=== PATIENT | male | born 1960 ===

== ENCOUNTER 2017-07-27 04:50 | Observation (INO) | payer OTHER ==
[2017-07-27] MEDS ORDERED: Sodium Chloride 0.9% 1,000 ML IV ONE ×2 (05:07→07:35)
[2017-07-27] MEDS ORDERED: Sodium Chloride 0.9% 1,000 ML ONE (05:19)
[2017-07-27 05:23] LABS: BASO # 0.2 K/uL (0.0-0.2); BASO % 1.1 % (0.0-2.0); EOS % 0.3 % (0.0-4.0); HEMOGLOBIN 15.4 g/dL (12.0-18.0); LYMPH # 2.2 K/uL (1.0-4.3); LYMPH % 14.3 % (20.0-40.0); MEAN CORPUSCULAR HEMOGLOBIN 29.9 pg (27.0-31.0); MEAN PLATELET VOLUME 9.3 fL (7.2-11.7); MONO # 0.4 K/uL (0.0-0.8); MONO % 2.8 % (0.0-10.0); NEUT # 12.5 K/uL (1.8-7.0); NEUT % 81.5 % (50.0-75.0); RBC 5.15 Mil/uL (4.40-5.90); WHITE BLOOD COUNT 15.3 K/uL (4.8-10.8)
[2017-07-27 05:34] LABS: ALB/GLOB RATIO 1.1 (1.0-2.1); ALBUMIN 4.3 g/dL (3.5-5.0); ALT/SGPT 28 U/L (21-72); AST/SGOT 24 U/L (17-59); BLOOD UREA NITROGEN 17 mg/dL (9-20); CALCIUM 9.6 mg/dl (8.6-10.4); GFR AFRICAN-AMERICAN > 60; GFR NON-AFRICAN AMERICAN > 60; LIPASE 86 U/L (23-300)
--- NOTE | 2017-07-27 06:10 | C.PDOC ---
History Of Present Illness 56 y/o male with h/o of DM BIBEMS with c/o of several episodes of vomiting, abdomen and flank pain since midnight. Pt denies fever, food association, dysuria, hematuria, urine frequency or similar previous symptoms. 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 denies: Fever, Back Pain, Urinary Symptoms Last Bowel Movement: Today Recent travel outside of the [place]: No Past Medical History Vital Signs: Last Vital Signs Temp 97.8 F 07/27/17 05:05 Pulse 60 07/27/17 05:05 Resp 20 07/27/17 05:05 BP 194/74 H 07/27/17 05:05 Pulse Ox 100 07/27/17 06:41 - Medical History PMH: No Chronic Diseases Family History: States: Unknown Family Hx - Social History Hx Alcohol Use: Yes Hx Substance Use: No - Immunization History Hx Tetanus Toxoid Vaccination: No Hx Influenza Vaccination: No Hx Pneumococcal Vaccination: No Review Of Systems Constitutional: Negative for: Fever Cardiovascular: Negative for: Chest Pain, Palpitations, Light Headedness Respiratory: Negative for: Shortness of Breath Gastrointestinal: Positive for: Nausea, Vomiting, Abdominal Pain, Other (flank pain) Genitourinary: Negative for: Dysuria, Hematuria Physical Exam - Physical Exam Appears: Well Eye(s): bilateral: Normal Inspection, PERRL Cardiovascular: Rhythm Regular Respiratory: Normal Breath Sounds Gastrointestinal/Abdominal: Normal Exam, Bowel Sounds, Soft, No Tenderness, No Distention, No Guarding, No Rebound Back: CVA Tenderness (B?L) Male Genital: Normal Inspection, No Testicular Tenderness Neurological/Psych: Oriented x3 ED Course And Treatment - Laboratory Results Result Diagrams: 07/27/17 05:19 07/27/17 05:19 O2 Sat by Pulse Oximetry: 100 Pulse Ox Interpretation: Normal - CT Scan/US CT Abdomen/Pelvis w/o Contrast Other Rad Studies (CT/US): Read By Radiologist, Radiology Report Reviewed CT/US Interpretation: FINDINGS: Limitations: Lack of intravenous contrast. Lung bases: Minimal atelectasis. ABDOMEN: Liver: Fatty infiltration. Gallbladder and bile ducts: No calcified stones. No ductal dilation. Pancreas: Unremarkable. No ductal dilation. Spleen: No splenomegaly. Adrenals: No mass. Kidneys and ureters: Mild atrophy of right kidney. No renal calculi. No hydronephrosis. Stomach and bowel: Fluid/loose stool within left colon. No definite mural thickening. No obstruction. Appendix: Normal caliber. No inflammation. PELVIS: Bladder: Unremarkable. No stones. Reproductive: Unremarkable as visualized. ABDOMEN and PELVIS: Intraperitoneal space: No significant fluid collection. No free air. Bones/joints: Early degenerative changes of spine. No acute fracture. Soft tissues: Small umbilical hernia containing fat. Small LEFT inguinal hernia containing fat. Vasculature: Minimal atherosclerotic disease. No aneurysm. Lymph nodes: No pathologically enlarged lymph nodes. IMPRESSION: 1. No definite CT evidence of urolithiasis. 2. Fluid/loose stool within bowel may suggest diarrhea illness. 3. Incidental /non-acute findings are described above. Progress Note: Labs incl UA and non contrast abd / pelvis CT ordered. Pt received Toradol and zofran IV and IVF. 0600- recurring vomiting- compazine IV ordered. 0640- Pt now c./o epigastric pain- ABD/ pelvis Ct shows no stones. RUq US and pepcid IV ordered Disposition - Disposition Disposition: HOME/ ROUTINE Disposition Time: 07:00 Condition: STABLE Forms: [employer] (Maltese) - Clinical Impression Clinical Impression: Abdominal pain Physician Patient Turnover Patient Signed Over To: Rekha Avendano Handoff Comments: Pending RUQ US and reeval
--- NOTE | 2017-07-27 06:28 | CT ---
EXAM: CT Abdomen and Pelvis Without Intravenous Contrast CLINICAL HISTORY: 56 years old, male; Pain; Other: Chest & b/l flank; Patient HX: Diabetic; Additional info: B/l flank pain TECHNIQUE: Axial computed tomography images of the abdomen and pelvis without intravenous contrast. All CT scans at this facility use one or more dose reduction techniques, viz.: automated exposure control; ma/kV adjustment per patient size (including targeted exams where dose is matched to indication; i.e. head); or iterative reconstruction technique. Coronal and sagittal reformatted images were created and reviewed. COMPARISON: No relevant prior studies available. FINDINGS: Limitations: Lack of intravenous contrast. Lung bases: Minimal atelectasis. ABDOMEN: Liver: Fatty infiltration. Gallbladder and bile ducts: No calcified stones. No ductal dilation. Pancreas: Unremarkable. No ductal dilation. Spleen: No splenomegaly. Adrenals: No mass. Kidneys and ureters: Mild atrophy of right kidney. No renal calculi. No hydronephrosis. Stomach and bowel: Fluid/loose stool within left colon. No definite mural thickening. No obstruction. Appendix: Normal caliber. No inflammation. PELVIS: Bladder: Unremarkable. No stones. Reproductive: Unremarkable as visualized. ABDOMEN and PELVIS: Intraperitoneal space: No significant fluid collection. No free air. Bones/joints: Early degenerative changes of spine. No acute fracture. Soft tissues: Small umbilical hernia containing fat. Small LEFT inguinal hernia containing fat. Vasculature: Minimal atherosclerotic disease. No aneurysm. Lymph nodes: No pathologically enlarged lymph nodes. IMPRESSION: 1. No definite CT evidence of urolithiasis. 2. Fluid/loose stool within bowel may suggest diarrhea illness. 3. Incidental/non-acute findings are described above.
[2017-07-27] MEDS ORDERED: Morphine 4 MG/ML VIAL IV STA (06:29)
[2017-07-27 06:36] LABS: SQUAMOUS EPITHIAL 1 /hpf (0-5); URINE BILIRUBIN NEGATIVE (NEGATIVE); URINE BLOOD NEGATIVE (NEGATIVE); URINE CLARITY Clear (Clear); URINE COLOR Straw (YELLOW); URINE GLUCOSE (UA) 3+ mg/dL (Normal); URINE LEUKOCYTE ESTERASE NEG Leu/uL (Negative); URINE PROTEIN NEGATIVE (NEGATIVE); URINE UROBILINOGEN NORMAL mg/dL (0.2-1.0)
[2017-07-27] MEDS ORDERED: Oxycodone/Acetaminophen 5/325 mg Tab PO STA (07:28)
[2017-07-27] MEDS ORDERED: Oxycodone/Acetaminophen 5/325 mg Tab ONE (07:37)
--- NOTE | 2017-07-27 08:24 | RAD ---
HISTORY: left chest wall pain COMPARISON: No prior. TECHNIQUE: Chest PA and lateral FINDINGS: LUNGS: No active pulmonary disease. PLEURA: No significant pleural effusion identified. No pneumothorax apparent. CARDIOVASCULAR: Normal. OSSEOUS STRUCTURES: No significant abnormalities. VISUALIZED UPPER ABDOMEN: Normal. OTHER FINDINGS: None. IMPRESSION: No active disease.
[2017-07-27 08:37] LABS: BARBITURATES, UR NEGATIVE (NEGATIVE); BENZODIAZEPINES, UR NEGATIVE (NEGATIVE); OPIATES, UR NEGATIVE (NEGATIVE); PHENCYCLIDINE, UR NEGATIVE (NEGATIVE)
--- NOTE | 2017-07-27 09:18 | US ---
Right upper quadrant abdominal ultrasound History: Abdominal pain. Comparison: CT scan dated 07/27/2017 Technique: Real-time sonography was performed through the right upper quadrant of the abdomen. Findings: Liver: 14.1 centimeters in length. Increased echogenicity of the hepatic parenchymal cortex suggestive for fatty infiltration versus hepatic parenchymal disease. Clinical correlation. Gallbladder: No calculi or sludge. Normal wall thickness of 2.6 millimeters. Negative sonographic Waddell's sign. Common bile duct measures 4.3 millimeters, within normal limits. Limited visualization of the pancreas. Visualized aorta and IVC are preserved. Right kidney: 9.2 x 4.8 x 5.0 centimeters. No calculi or hydronephrosis. Impression: Increased echogenicity of the hepatic parenchymal cortex suggestive for fatty infiltration versus hepatic parenchymal disease. Clinical correlation. Limited visualization of the pancreas.
[2017-07-27 11:05] VITALS: RESP 20
[2017-07-27] MEDS: Sodium Chloride 0.9% 1,000 ML IV SCH ×2 (11:42→18:00)
[2017-07-27] MEDS: (Novolin R) Insulin Human Regular 100 units/ml vial SC SCH ×3 (12:01→22:00)
--- NOTE | 2017-07-27 14:40 | CP.PCM.HP ---
<Breanne Ornelas - Last Filed: 07/27/17 14:40> History of Present Illness - History of Present Illness History of Present Illness: HPI: Patient is a 56 year old male with a past medical history of DM who presents with abdominal pain and intractable vomiting that began around midnight last night. There were no precipitating factors as far as he knows, with no change in his diet. He describes the pain as sharp and stabbing and rates it at 10/10, localized to epigastrium. He has also had several episodes of diarrhea and dizziness without syncope. Patient says he can not tolerate anything by mouth. He states that he experienced an identical episode about 8 months ago for which he was hospitalized and at that time was diagnosed with DM. He takes Metformin 1000mg daily. He denies fever, chills, weakness, headache , CP, palpitations, hematemesis, constipation, hematochezia, urinary changes, back pain, recent travel, recent sickness, sick contacts, weight changes. PMH: DM Meds: Metformin 1000 mg daily Allergies: Denies Surg: Denies FMH: Denies Social: Smokes ~4 cigarettes daily with 35 year history; drinks alcohol <1 day/ week; admits to using cocaine "once in a while" Present on Admission - Present on Admission Any Indicators Present on Admission: No Review of Systems - Review of Systems All systems: reviewed and no additional remarkable complaints except (as per HPI ) Past Patient History - Past Social History Smoking Status: Light Smoker < 10 Cigarettes Daily - ENDOCRINE/METABOLIC Hx Diabetes Mellitus Type 2: Yes - PSYCHIATRIC Hx Substance Use: No - SURGICAL HISTORY Hx Surgeries: No - ANESTHESIA Hx Anesthesia: No Meds Allergies/Adverse Reactions: Allergies Allergy/AdvReac Type Severity Reaction Status Date / Time No Known Allergies Allergy Verified 07/27/17 05:04 Physical Exam - Constitutional Appears: Non-toxic, No Acute Distress - Head Exam Head Exam: ATRAUMATIC, NORMAL INSPECTION, NORMOCEPHALIC - Eye Exam Eye Exam: EOMI, Normal appearance, PERRL - ENT Exam ENT Exam: Mucous Membranes Dry - Neck Exam Neck exam: Positive for: Normal Inspection - Respiratory Exam Respiratory Exam: Clear to Auscultation Bilateral, NORMAL BREATHING PATTERN. absent: Rales, Rhonchi, Wheezes - Cardiovascular Exam Cardiovascular Exam: RRR, +S1, +S2. absent: Gallop, Rubs, Systolic Murmur - GI/Abdominal Exam GI & Abdominal Exam: Guarding (voluntary with palpation of the epigastrum), Normal Bowel Sounds, Soft, Tenderness (epigastric tenderness). absent: Distended - Extremities Exam Extremities exam: Positive for: normal inspection. Negative for: calf tenderness, pedal edema - Neurological Exam Neurological exam: Alert, Oriented x3 - Psychiatric Exam Psychiatric exam: Normal Affect, Normal Mood - Skin Skin Exam: Dry, Intact, Normal Color, Warm Results - Vital Signs Recent Vital Signs: Last Vital Signs Temp 97.8 F 07/27/17 11:30 Pulse 81 07/27/17 11:30 Resp 20 07/27/17 11:30 BP 177/89 H 07/27/17 11:30 Pulse Ox 96 07/27/17 12:33 - Labs Result Diagrams: 07/27/17 05:19 07/27/17 05:19 Labs: Laboratory Results - last 24 hr 07/27/17 07/27/17 07/27/17 05:19 05:19 06:31 WBC 15.3 H RBC 5.15 Hgb 15.4 Hct 45.3 MCV 88.0 MCH 29.9 MCHC 34.0 RDW 13.0 Plt Count 289 MPV 9.3 Neut % (Auto) 81.5 H Lymph % (Auto) 14.3 L [place] % (Auto) 2.8 Eos % (Auto) 0.3 Baso % (Auto) 1.1 Neut # (Auto) 12.5 H Lymph # (Auto) 2.2 [place] # (Auto) 0.4 Eos # (Auto) 0.0 Baso # (Auto) 0.2 Sodium 137 Potassium 4.7 Chloride 95 L Carbon Dioxide 28 Anion Gap 20 BUN 17 Creatinine 0.9 Est GFR ( Amer) > 60 Est GFR (Non-Af Amer) > 60 POC Glucose (mg/dL) Random Glucose 368 H Calcium 9.6 Total Bilirubin 0.6 AST 24 ALT 28 Alkaline Phosphatase 128 H Troponin I < 0.0120 Total Protein 8.4 H Albumin 4.3 Globulin 4.0 H Albumin/Globulin Ratio 1.1 Lipase 86 Urine Color Straw Urine Clarity Clear Urine pH 8.0 Ur Specific [place] 1.017 Urine Protein Negative Urine Glucose (UA) 3+ H Urine Ketones Trace Urine Blood Negative Urine Nitrate Negative Urine Bilirubin Negative Urine Urobilinogen Normal Ur Leukocyte Esterase Neg Urine RBC (Auto) < 1 Ur Squamous Epith Cells 1 Urine Opiates Screen Urine Methadone Screen Ur Barbiturates Screen Ur Phencyclidine Scrn Ur Amphetamines Screen U Benzodiazepines Scrn U Oth Cocaine Metabols U Cannabinoids Screen 07/27/17 07/27/17 07/27/17 07:40 09:54 11:44 WBC RBC Hgb Hct MCV MCH MCHC RDW Plt Count MPV Neut % (Auto) Lymph % (Auto) [place] % (Auto) Eos % (Auto) Baso % (Auto) Neut # (Auto) Lymph # (Auto) [place] # (Auto) Eos # (Auto) Baso # (Auto) Sodium Potassium Chloride Carbon Dioxide Anion Gap BUN Creatinine Est GFR ( Amer) Est GFR (Non-Af Amer) POC Glucose (mg/dL) 268 H 255 H Random Glucose Calcium Total Bilirubin AST ALT Alkaline Phosphatase Troponin I Total Protein Albumin Globulin Albumin/Globulin Ratio Lipase Urine Color Urine Clarity Urine pH Ur Specific [place] Urine Protein Urine Glucose (UA) Urine Ketones Urine Blood Urine Nitrate Urine Bilirubin Urine Urobilinogen Ur Leukocyte Esterase Urine RBC (Auto) Ur Squamous Epith Cells Urine Opiates Screen Negative Urine Methadone Screen Negative Ur Barbiturates Screen Negative Ur Phencyclidine Scrn Negative Ur Amphetamines Screen Negative U Benzodiazepines Scrn Negative U Oth Cocaine Metabols Positive H U Cannabinoids Screen Negative Assessment & Plan - Assessment and Plan (Free Text) Plan: Vomiting and Diarrhea * Likely gastroenteritis, unlikely gastroparesis considering rather short history of DM (8 months) * Leukocytosis (15.3) with neutrophilia * Afebrile * CT abdomen/pelvis: Fluid/loose stool in bowel * Abdominal US: fatty liver vs hepatic parenchymal disease * CXR: no active disease, no air under the diaphragm * NPO with ice chips * NS @150 cc/h * Zofran PRN * Protonix DM * hold metformin * ISS medium dose * Accuchecks ACHS * Hypoglycemia protocol * f/u HbA1c Prophylaxis * SCDs * Protonix <Christy Ontiveros - Last Filed: 07/27/17 18:49> Results - Vital Signs Recent Vital Signs: Last Vital Signs Temp 97.8 F 07/27/17 11:30 Pulse 81 07/27/17 11:30 Resp 20 07/27/17 11:30 BP 177/89 H 07/27/17 11:30 Pulse Ox 96 07/27/17 12:33 - Labs Result Diagrams: 07/27/17 05:19 07/27/17 05:19 Labs: Laboratory Results - last 24 hr 07/27/17 07/27/17 07/27/17 05:19 05:19 06:31 WBC 15.3 H RBC 5.15 Hgb 15.4 Hct 45.3 MCV 88.0 MCH 29.9 MCHC 34.0 RDW 13.0 Plt Count 289 MPV 9.3 Neut % (Auto) 81.5 H Lymph % (Auto) 14.3 L [place] % (Auto) 2.8 Eos % (Auto) 0.3 Baso % (Auto) 1.1 Neut # (Auto) 12.5 H Lymph # (Auto) 2.2 [place] # (Auto) 0.4 Eos # (Auto) 0.0 Baso # (Auto) 0.2 Sodium 137 Potassium 4.7 Chloride 95 L Carbon Dioxide 28 Anion Gap 20 BUN 17 Creatinine 0.9 Est GFR ( Amer) > 60 Est GFR (Non-Af Amer) > 60 POC Glucose (mg/dL) Random Glucose 368 H Calcium 9.6 Total Bilirubin 0.6 AST 24 ALT 28 Alkaline Phosphatase 128 H Troponin I < 0.0120 Total Protein 8.4 H Albumin 4.3 Globulin 4.0 H Albumin/Globulin Ratio 1.1 Lipase 86 Urine Color Straw Urine Clarity Clear Urine pH 8.0 Ur Specific [place] 1.017 Urine Protein Negative Urine Glucose (UA) 3+ H Urine Ketones Trace Urine Blood Negative Urine Nitrate Negative Urine Bilirubin Negative Urine Urobilinogen Normal Ur Leukocyte Esterase Neg Urine RBC (Auto) < 1 Ur Squamous Epith Cells 1 Urine Opiates Screen Urine Methadone Screen Ur Barbiturates Screen Ur Phencyclidine Scrn Ur Amphetamines Screen U Benzodiazepines Scrn U Oth Cocaine Metabols U Cannabinoids Screen 07/27/17 07/27/17 07/27/17 07:40 09:54 11:44 WBC RBC Hgb Hct MCV MCH MCHC RDW Plt Count MPV Neut % (Auto) Lymph % (Auto) Mclean % (Auto) Eos % (Auto) Baso % (Auto) Neut # (Auto) Lymph # (Auto) Mclean # (Auto) Eos # (Auto) Baso # (Auto) Sodium Potassium Chloride Carbon Dioxide Anion Gap BUN Creatinine Est GFR ( Amer) Est GFR (Non-Af Amer) POC Glucose (mg/dL) 268 H 255 H Random Glucose Calcium Total Bilirubin AST ALT Alkaline Phosphatase Troponin I Total Protein Albumin Globulin Albumin/Globulin Ratio Lipase Urine Color Urine Clarity Urine pH Ur Specific [place] Urine Protein Urine Glucose (UA) Urine Ketones Urine Blood Urine Nitrate Urine Bilirubin Urine Urobilinogen Ur Leukocyte Esterase Urine RBC (Auto) Ur Squamous Epith Cells Urine Opiates Screen Negative Urine Methadone Screen Negative Ur Barbiturates Screen Negative Ur Phencyclidine Scrn Negative Ur Amphetamines Screen Negative U Benzodiazepines Scrn Negative U Oth Cocaine Metabols Positive H U Cannabinoids Screen Negative 07/27/17 16:24 WBC RBC Hgb Hct MCV MCH MCHC RDW Plt Count MPV Neut % (Auto) Lymph % (Auto) Mclean % (Auto) Eos % (Auto) Baso % (Auto) Neut # (Auto) Lymph # (Auto) Mclean # (Auto) Eos # (Auto) Baso # (Auto) Sodium Potassium Chloride Carbon Dioxide Anion Gap BUN Creatinine Est GFR ( Amer) Est GFR (Non-Af Amer) POC Glucose (mg/dL) 217 H Random Glucose Calcium Total Bilirubin AST ALT Alkaline Phosphatase Troponin I Total Protein Albumin Globulin Albumin/Globulin Ratio Lipase Urine Color Urine Clarity Urine pH Ur Specific [place] Urine Protein Urine Glucose (UA) Urine Ketones Urine Blood Urine Nitrate Urine Bilirubin Urine Urobilinogen Ur Leukocyte Esterase Urine RBC (Auto) Ur Squamous Epith Cells Urine Opiates Screen Urine Methadone Screen Ur Barbiturates Screen Ur Phencyclidine Scrn Ur Amphetamines Screen U Benzodiazepines Scrn U Oth Cocaine Metabols U Cannabinoids Screen Attending/Attestation - Attestation I have personally seen and examined this patient.: Yes I have fully participated in the care of the patient.: Yes I have reviewed all pertinent clinical information: Yes Notes (Text): Seen and examined has intractable vomiting.no chest pain,no sob DM diagnosed 8months ago. Looks sick and dehydrated mild epigastric tenderness,no guarding,no rigidity assessment and the plan discussed with the resident. I agree with the resident' s documentation of of the assessment and the plan continue fluids and zofran 1.Intractable vomiting and diarrhea 2. likely Gastro enteritis 3. DM
[2017-07-27] MEDS ORDERED: Dextrose 50% SYRINGE Inj (50 ml) IV PRN (14:48)
[2017-07-27] MEDS ORDERED: Glucagon Recombinant 1 mg Inj IM PRN (14:48)
[2017-07-28] MEDS: Sodium Chloride 0.9% 1,000 ML IV SCH ×5 (02:16→13:40)
[2017-07-28 06:26] LABS: BASO # 0.1 K/uL (0.0-0.2); BASO % 0.3 % (0.0-2.0); EOS # 0.2 K/uL (0.0-0.7); EOS % 1.1 % (0.0-4.0); HEMOGLOBIN 14.1 g/dL (12.0-18.0); LYMPH # 4.4 K/uL (1.0-4.3); LYMPH % 26.4 % (20.0-40.0); MEAN CELL VOLUME 89.2 fL (80.0-94.0); MEAN CORPUSCULAR HEMOGLOBIN 30.2 pg (27.0-31.0); MEAN CORPUSCULAR HGB CONC 33.8 g/dL (33.0-37.0); MEAN PLATELET VOLUME 9.2 fL (7.2-11.7); MONO # 1.1 K/uL (0.0-0.8); MONO % 6.4 % (0.0-10.0); NEUT % 65.8 % (50.0-75.0); NRBC % 0.1 % (0.0-2.0); RBC 4.68 Mil/uL (4.40-5.90); RED CELL DISTRIBUTION WIDTH 12.8 % (11.5-14.5); WHITE BLOOD COUNT 16.7 K/uL (4.8-10.8)
[2017-07-28 06:33] LABS: BLOOD UREA NITROGEN 12 mg/dL (9-20); CALCIUM 7.5 mg/dl (8.6-10.4); GFR AFRICAN-AMERICAN > 60; GFR NON-AFRICAN AMERICAN > 60
[2017-07-28] MEDS ORDERED: Potassium Chloride 20 mEq ER Tab PO ONE (07:30)
[2017-07-28] MEDS: (Novolin R) Insulin Human Regular 100 units/ml vial SC SCH ×2 (08:05→12:10)
[2017-07-28 09:24] VITALS: BP 140/85; PULSE 85; TEMP 98.6; O2SAT 97
[2017-07-28] MEDS ORDERED: Pneumococcal 23-Valent Vaccine IM ONE (14:00)
--- NOTE | 2017-07-28 17:57 | CP.PCM.DIS ---
Provider - Provider Date of Admission: 07/27/17 09:45 Attending physician: Christy Ontiveros MD Time Spent in preparation of Discharge (in minutes): 35 Diagnosis - Discharge Diagnosis (1) Gastroenteritis Status: Acute Hospital Course - Lab Results Lab Results: Most Recent Lab Values WBC 16.7 K/uL (4.8-10.8) H 07/28/17 06:09 RBC 4.68 Mil/uL (4.40-5.90) 07/28/17 06:09 Hgb 14.1 g/dL (12.0-18.0) 07/28/17 06:09 Hct 41.8 % (35.0-51.0) 07/28/17 06:09 MCV 89.2 fL (80.0-94.0) 07/28/17 06:09 MCH 30.2 pg (27.0-31.0) 07/28/17 06:09 MCHC 33.8 g/dL (33.0-37.0) 07/28/17 06:09 RDW 12.8 % (11.5-14.5) 07/28/17 06:09 Plt Count 248 K/uL (130-400) 07/28/17 06:09 MPV 9.2 fL (7.2-11.7) 07/28/17 06:09 Neut % (Auto) 65.8 % (50.0-75.0) 07/28/17 06:09 Lymph % (Auto) 26.4 % (20.0-40.0) 07/28/17 06:09 [place] % (Auto) 6.4 % (0.0-10.0) 07/28/17 06:09 Eos % (Auto) 1.1 % (0.0-4.0) 07/28/17 06:09 Baso % (Auto) 0.3 % (0.0-2.0) 07/28/17 06:09 Neut # (Auto) 11.0 K/uL (1.8-7.0) H 07/28/17 06:09 Lymph # (Auto) 4.4 K/uL (1.0-4.3) H 07/28/17 06:09 [place] # (Auto) 1.1 K/uL (0.0-0.8) H 07/28/17 06:09 Eos # (Auto) 0.2 K/uL (0.0-0.7) 07/28/17 06:09 Baso # (Auto) 0.1 K/uL (0.0-0.2) 07/28/17 06:09 Sodium 138 mmol/L (132-148) 07/28/17 06:09 Potassium 3.4 mmol/L (3.6-5.2) L 07/28/17 06:09 Chloride 102 mmol/L (98-107) 07/28/17 06:09 Carbon Dioxide 27 mmol/L (22-30) 07/28/17 06:09 Anion Gap 13 (10-20) 07/28/17 06:09 BUN 12 mg/dL (9-20) 07/28/17 06:09 Creatinine 0.8 mg/dL (0.8-1.5) 07/28/17 06:09 Est GFR ( Amer) > 60 07/28/17 06:09 Est GFR (Non-Af Amer) > 60 07/28/17 06:09 POC Glucose (mg/dL) 188 mg/dL (65-110) H 07/28/17 11:30 Random Glucose 144 mg/dL (75-110) H 07/28/17 06:09 Hemoglobin A1c 11.0 % (4.2-6.5) H 07/28/17 06:09 Calcium 7.5 mg/dl (8.6-10.4) L 07/28/17 06:09 Total Bilirubin 0.6 mg/dL (0.2-1.3) 07/27/17 05:19 AST 24 U/L (17-59) 07/27/17 05:19 ALT 28 U/L (21-72) 07/27/17 05:19 Alkaline Phosphatase 128 U/L (38-126) H 07/27/17 05:19 Troponin I < 0.0120 ng/mL (0.00-0.120) 07/27/17 05:19 Total Protein 8.4 g/dL (6.3-8.3) H 07/27/17 05:19 Albumin 4.3 g/dL (3.5-5.0) 07/27/17 05:19 Globulin 4.0 gm/dL (2.2-3.9) H 07/27/17 05:19 Albumin/Globulin Ratio 1.1 (1.0-2.1) 07/27/17 05:19 Lipase 86 U/L (23-300) 07/27/17 05:19 Urine Color Straw (YELLOW) 07/27/17 06:31 Urine Clarity Clear (Clear) 07/27/17 06:31 Urine pH 8.0 (5.0-8.0) 07/27/17 06:31 Ur Specific [place]gie 1.017 (1.003-1.030) 07/27/17 06:31 Urine Protein Negative mg/dL (NEGATIVE) 07/27/17 06:31 Urine Glucose (UA) 3+ mg/dL (Normal) H 07/27/17 06:31 Urine Ketones Trace mg/dL (NEGATIVE) 07/27/17 06:31 Urine Blood Negative (NEGATIVE) 07/27/17 06:31 Urine Nitrate Negative (NEGATIVE) 07/27/17 06:31 Urine Bilirubin Negative (NEGATIVE) 07/27/17 06:31 Urine Urobilinogen Normal mg/dL (0.2-1.0) 07/27/17 06:31 Ur Leukocyte Esterase Neg Sever[place]/uL (Negative) 07/27/17 06:31 Urine RBC (Auto) < 1 /hpf (0-3) 07/27/17 06:31 Ur Squamous Epith Cells 1 /hpf (0-5) 07/27/17 06:31 Urine Opiates Screen Negative (NEGATIVE) 07/27/17 07:40 Urine Methadone Screen Negative (NEGATIVE) 07/27/17 07:40 Ur Barbiturates Screen Negative (NEGATIVE) 07/27/17 07:40 Ur Phencyclidine Scrn Negative (NEGATIVE) 07/27/17 07:40 Ur Amphetamines Screen Negative (NEGATIVE) 07/27/17 07:40 U Benzodiazepines Scrn Negative (NEGATIVE) 07/27/17 07:40 U Oth Cocaine Metabols Positive (NEGATIVE) H 07/27/17 07:40 U Cannabinoids Screen Negative (NEGATIVE) 07/27/17 07:40 - Hospital Course Hospital Course: Upon admission: Patient is a 56 year old male with a past medical history of DM who presents with abdominal pain and intractable vomiting that began around midnight last night. There were no precipitating factors as far as he knows, with no change in his diet. He describes the pain as sharp and stabbing and rates it at 10/10, localized to epigastrium. He has also had several episodes of diarrhea and dizziness without syncope. Patient says he can not tolerate anything by mouth. He states that he experienced an identical episode about 8 months ago for which he was hospitalized and at that time was diagnosed with DM. He takes Metformin 1000mg daily. He denies fever, chills, weakness, headache , CP, palpitations, hematemesis, constipation, hematochezia, urinary changes, back pain, recent travel, recent sickness, sick contacts, weight changes. Hospital course: Patient was admitted for observation and given fluids. Patient was able to tolerate his diet today without nausea and vomiting so he was cleared for discharge per Dr. Ontiveros. He was discharged with the following instructions: Please follow up with your primary doctor in [place] for adjustment of your diabetic medications and better glucose control. If you experieince new or worsening symptoms, please return to your nearest emergency room. Please note that this is a brief summary of events. For more details, please see complete medical record. Discharge Exam - Head Exam Head Exam: ATRAUMATIC, NORMAL INSPECTION, NORMOCEPHALIC - Eye Exam Eye Exam: EOMI, Normal appearance, PERRL Pupil Exam: NORMAL ACCOMODATION, PERRL - Respiratory Exam Respiratory Exam: NORMAL BREATHING PATTERN, UNREMARKABLE - Cardiovascular Exam Cardiovascular Exam: REGULAR RHYTHM, +S1, +S2 - GI/Abdominal Exam GI & Abdominal Exam: Normal Bowel Sounds - Neurological Exam Neurological exam: Alert, CN II-XII Intact, Normal Gait, Oriented x3, Reflexes Normal - Psychiatric Exam Psychiatric exam: Normal Affect, Normal Mood - Skin Skin Exam: Dry, Intact, Normal Color, Warm Discharge Plan - Follow Up Plan Condition: GOOD Disposition: HOME/ ROUTINE Instructions: Smoking: Not Just Harmful to Your Lungs and Heart, Nausea and Vomiting, Adult (DC), Diabetes Type 2 (DC), Quitting Smoking, Diabetes and Diet , Acute Abdominal Pain (DC) Additional Instructions: Please follow up with your primary doctor in [place] for adjustment of your diabetic medications and better glucose control. If you experieince new or worsening symptoms, please return to your nearest emergency room.
--- NOTE | 2017-07-28 21:59 | CARD ---
APPROVED REPORT EKG Measurement Heart [id number] <Conclusion> Normal sinus rhythm with sinus arrhythmia Possible Left atrial enlargement Borderline ECG
== END 2017-07-28 15:09 | disposition home or self-care (01) ==
LOC: C.ER 04:50 → C.9E 09:45 → C.3T 10:54
PROVIDERS: ADMIT Internal Medicine; ATTEND Internal Medicine
DX: K52.9 Noninfective gastroenteritis and colitis, unspecified (principal); E11.9 Type 2 diabetes mellitus without complications; F17.210 Nicotine dependence, cigarettes, uncomplicated
CPT/HCPCS: 36415; 71046; 74176; 76705; 80048; 80053; 80324; 80345; 80346; 80349; 80353; 80358; 80361; 81001; 82948; 83036; 83690; 83992; 84484; 85025; 93005; 96360; 96374; 99285; C9113; G0378; J0780; J1885; J2405; J2765; J7040